=== PATIENT | female | born 1995 | race African-American/Black ===

== ENCOUNTER 2017-03-08 22:10 | Emergency (ER) | payer OTHER ==
--- NOTE | ~2017-03-08 | CT2 ---
[facility] A Service [facility] RADIOLOGY TEXT RESULTS PATIENT: CAROLINA VAZQUEZ LOCATION: [place] : [birth year] UNIT #: [id number] AGE: [address]: Aleksandar Sherman PAC SEX: F ORDER DR: [id number] [address] [place], [place] [address] [id number] MR#: [id number] Acc #: [id number] NAME: CAROLINA VAZQUEZ. : 1995 SEX: F STUDY DATE/TIME: 03/08/2017 22:42 UNIT: [facility] ROOM: STUDY DESCRIPTION: CT Abd and Pelv W Cont Attending Physician: Aleksandar Sherman P.A.-C. Ordering Physician: Aleksandar Sherman P.A.-C. Primary Care Physician: Primary Care Physician No MEDICAL IMAGING REPORT This report is preliminary unless electronic signature is present EXAM CT abdomen and pelvis with contrast INDICATION Right-sided pain, fever, chills for 2 days. COMPARISON 07/16/2014. TECHNIQUE The patient was given 100 mL of Isovue 370 and axial 5 mm images were obtained through the abdomen and pelvis. This CT examination was performed with one or more of the following radiation dose reduction techniques: automatic exposure control, adjustment of mA and/or kV according to patient size, and iterative reconstruction. FINDINGS Lung bases are clear. The liver, gallbladder, spleen, pancreas, adrenal glands and kidneys are normal. The bowel including the appendix appears normal. The uterus, adnexal regions and bladder are normal. The bones are normal. IMPRESSION Normal CT abdomen and pelvis. The appendix is normal. Dictated by... Tray Friedman M.D. THIS IS AN ELECTRONICALLY VERIFIED REPORT [facility] A Service [facility] RADIOLOGY TEXT RESULTS PATIENT: CAROLINA VAZQUEZ LOCATION: [place] : [birth year] UNIT #: [id number] AGE: [address]: Aleksandar Sherman PAC SEX: F ORDER DR: Tray Friedman M.D. at 03/09/2017 1:24 PM CHELITA/lydia TD: 03/09/2017 09:11 JOB #: [id number] MEDICAL IMAGING REPORT Page 1 of 1 COPY
--- NOTE | ~2017-03-08 | CR63 ---
[facility] A Service of [facility] RADIOLOGY TEXT RESULTS PATIENT: CAROLINA VAZQUEZ LOCATION: [facility] : [birth year] UNIT #: [id number] AGE: [address]: Aleksandar Sherman SEX: F ORDER DR: [id number] [facility] [address] [place], [place] [address] [id number] MR#: [id number] Acc #: [id number] NAME: CAROLINA VAZQUEZ : 1995 SEX: F STUDY DATE/TIME: 03/08/2017 23:39 UNIT: [facility] ROOM: STUDY DESCRIPTION: CR Chest 2 View Attending Physician: Aleksandar Sherman P.A.-C. Ordering Physician: Aleksandar Sherman P.A.-C. Primary Care Physician: Primary Care Physician No MEDICAL IMAGING REPORT This report is preliminary unless electronic signature is present EXAM PA and lateral chest INDICATION Fever, abdomen pain, chills, cough for 3 days. COMPARISON 02/05/2013 FINDINGS PA and lateral examination of the chest upright shows a good expansion of the parenchyma with a normal distribution of the pulmonary vascularity. There is no indication of congestion, effusion, infiltrate, tumor, or nodular density. The pleural reflections and diaphragmatic contours are normal. The cardiac silhouette and mediastinal anatomy is within normal limits. IMPRESSION Normal chest. Dictated by... Tray Friedman M.D. THIS IS AN ELECTRONICALLY VERIFIED REPORT Tray Friedman M.D. at 03/09/2017 1:25 PM Yesenia TD: 03/09/2017 08:51 JOB #: [id number] MEDICAL IMAGING REPORT Page 1 of 1 COPY
[2017-03-08 21:10] LABS: INFLUENZA A NEG (NEG); INFLUENZA B NEG (NEG)
[~2017-03-08 22:10] MED LIST: AMOXICILLIN PO; CLARITIN10 MG PO; IBUPROFEN PO; IMITREX PO
[2017-03-08 22:29] LABS: URINE SOURCE CLEAN CATCH
[2017-03-08 22:33] LABS: URINE APPEARANCE CLOUDY; URINE BILIRUBIN NEG (NEG); URINE BLOOD 2+ (NEG); URINE COLOR YELLOW; URINE GLUCOSE NEG (NEG); URINE KETONE TRACE (NEG); URINE LEUKOCYTE ESTERASE 3+ (NEG); URINE NITRATE POS (NEG); URINE PROTEIN NEG (NEG); URINE SPECIFIC GRAVITY 1.016 (1.003-1.035); URINE UROBILINOGEN 0.2 MG/DL (NEG)
[2017-03-08 22:36] LABS: CULTURE INDICATED? YES; URBCS1 AUWI 0-2 /[HPF] (0-2); URINE BACTERIA AUWI 4+ (NEGATIVE); URINE SQUAMOUS EPITHELIAL CELL NONE SEEN /[HPF]; UWBCS1 AUWI 100-200 (0-5)
[2017-03-08 23:07] LABS: BASOPHIL% 0.5 % (0-2.5); DIFF IND NO; EOSINOPHIL% 0.2 % (0.0-7.0); HEMATOCRIT 43.1 % (35.0-45.0); HEMOGLOBIN 14.8 gm/dL (12.0-16.0); LYMPHOCYTE# 1.2 X10e3 (1.0-3.5); LYMPHOCYTE% 14.3 % (17.0-45.0); MEAN CELL VOLUME 85.7 FL (83-96); MEAN CORPUSCULAR HEMOGLOBIN 29.3 PG (28-34); MEAN CORPUSCULAR HGB CONC 34.2 g/dL (30-36); MEAN PLATELET VOLUME 7.9 FL (6.5-11.5); MONOCYTE# 0.8 X10e3 (0-1.0); MONOCYTE% 9.3 % (3.0-12.0); NEUTROPHIL# 6.6 X10e3 (1.5-7.1); NEUTROPHIL% 75.7 % (40-75); PLATELET COUNT 212 X10e3 (140-420); RED BLOOD COUNT 5.03 X10e (3.90-5.30); RED CELL DISTRIBUTION WIDTH 13.7 % (11.0-15.5); WHITE BLOOD COUNT 8.7 X10e3 (4.0-10.5)
[2017-03-08 23:31] LABS: ALBUMIN SERUM 4.1 g/dL (3.5-5.0); BILIRUBIN, DIRECT 0.1 mg/dL (0.0-0.2); BILIRUBIN,INDIRECT 0.8 mg/dL (0.0-0.9); BILIRUBIN,TOTAL 0.9 mg/dL (0.2-2.0); CALCIUM SERUM 8.9 mg/dL (8.4-10.2); GLOM FILT RATE Estimated 93.3 mL/min (>60); POTASSIUM 3.3 mmol/L (3.5-5.1); PROTEIN TOTAL SERUM 7.6 g/dL (6.0-8.3)
== END 2017-03-09 01:20 | disposition home or self-care (01) ==
LOC: CFTX 22:10
PROVIDERS: Physician Assistant
DX: N39.0 Urinary tract infection, site not specified (principal); F17.290 Nicotine dependence, other tobacco product, uncomplicated; G43.909 Migraine, unspecified, not intractable, without status migrainosus; R56.9 Unspecified convulsions
CPT/HCPCS: 36415; 71020; 74177; 80048; 80076; 81003; 83690; 84703; 85025; 87086; 87088; 87186; 87804; 96361; 96365; 99284; J0696; Q9967

== ENCOUNTER 2017-08-09 01:48 | Emergency (ER) | payer OTHER ==
[~2017-08-09] VITALS: Ht 167.6 cm; Wt 59.0 kg
[2017-08-09] MEDS ORDERED: DEPO-PROVE400 MG/1 M (01:52)
== END 2017-08-09 03:45 | disposition home or self-care (01) ==
LOC: CED 01:48
DX: J06.9 Acute upper respiratory infection, unspecified (principal); M54.9 Dorsalgia, unspecified; F17.210 Nicotine dependence, cigarettes, uncomplicated
CPT/HCPCS: 99283